=== PATIENT | male | born 1970 | race Caucasian/White ===

== ENCOUNTER 2024-04-06 00:36 | Emergency (ER) | payer BC, SELFPAY ==
[2024-04-06 00:36] VITALS: BP 148/103; PULSE 108; RESP 20; TEMP 37.7; O2SAT 96
--- NOTE | 2024-04-06 00:40 | EDS_ITS ---
HPI HPI - GI History of Present Illness Chief Complaint: Abd Pain Informant: patient Abdominal Pain/Flank Pain Onset: Today and Yesterday Context: Gradual Onset Timing: Continuous Quality: Aching Location: Diffuse Current Severity: Mild Maximum Severity: Moderate Worsened by: Nothing Relieved by: Nothing Nausea/Vomiting/Emesis GI Symptom: Positive for Nausea and Vomiting Onset: Today Severity: Mild Diarrhea/Melena/Hematochezia GI Symptom: Positive for - (Mild constipation. No bowel movement for 2 to 3 days.); Negative for Diarrhea, Melena or Hematochezia Severity: Mild Associated Symptoms Associated Symptoms: Negative for Dysuria, Frequency, Hematuria or Urgency Narrative Narrative: 53-year-old male no stated past medical history. No prior abdominal surgeries. Said he had URI symptoms last several days. He developed abdominal pain last evening. Had mild nausea and vomiting today. Pain started Tuesday evening. He denies any diarrhea. He has had mild constipation last several days. He had no prior abdominal surgeries. States his last bowel movement was 2 to 3 days ago. Denies any dysuria or hematuria. No prior history of bowel obstruction or any abdominal trauma. Prior similar symptoms: No Recent Illness/Hospitalization: No PFSH PFSH Medical History no medical history no medical history Home Medications ?Medication ?Instructions ?Recorded ?Last Taken ?Type tamsulosin 0.4 mg capsule (Flomax) 0.4 mg PO DAILY #10 caps 04/06/24 Unknown Rx Allergy/AdvReac Type Severity Reaction Status Date / Time No Known Allergies Allergy Verified 04/06/24 00:36 Surgical History no surgical history no surgical history Social History Smoking Status: Never smoker ROS ROS ED ROS Narrative Abdominal pain nausea and vomiting. Recent URI. Constitutional Constitutional ED: Denies chills or fever(s) ENT ENT ED: Denies ear pain Cardiovascular Cardiovascular: Denies chest pain Respiratory/Chest Respiratory/Chest: Denies cough or dyspnea Gastrointestinal Gastrointestinal: Reports abdominal pain, constipation, nausea and vomiting; De nies diarrhea or melena Genitourinary Genitourinary ED: Denies dysuria or hematuria Musculoskeletal Musculoskeletal: Denies arthralgias or back pain Integumentary Denies abscess or Abrasions Neurologic Neurologic: Denies headache(s) Psychiatric Psychiatric: Denies anxiety or depression Endocrine Endocrinology: Denies polydipsia or polyphagia Hematologic/Lymphatic Hematologic/Lymphatic: Denies easy bleeding or easy bruising Allergic/Immunologic Allergic/Immunologic ED: Denies mouth swelling, tongue swelling or urticaria EXAM Physical Exam Narrative Exam Narrative: 53-year-old male vital signs are stable he does have a low-grade temperature of 100. He does not look septic or toxic. He is in no distress. Sitting upright in bed. Currently no family with him. H EENT exam unremarkable. Moist mucous membranes. Neck nontender no JVD. Lungs clear to auscultation bilaterally. Heart regular rhythm rate about 105 no murmur. Chest wall ribs nontender. Abdomen soft nondistended normal bowel sounds without peritoneal signs. There is no localizing tenderness. He denies pain on palpation. I do not see any hernia or mass. There is no signs of trauma. No prior surgical scars. Right upper and lower quadrants are unremarkable. Back nontender. Moving all 4 extremities. Nontender no edema. Neurologically patient is awake and alert. Answering questions following commands. No focal motor deficits. Const Vital Signs: 04/06/24 00:36 Temperature 100 F H Temperature Source Oral Pulse Rate 108 H Respiratory Rate 20 H Blood Pressure 148/103 H Blood Pressure Mean 118 Pulse Ox 96 Oxygen Delivery Method Room Air Positive well nourished and well developed; Negative for obese, cachectic, contractures or unkempt General Appearance ED: well developed and NAD; Negative for unkempt, cachectic or contractures Nutritional Appearance: Negative for cachectic or obese HEENT Reports moist mucous membranes normocephalic and atraumatic Eyes PERRL and EOMs intact bilaterally Neck no lymphadenopathy, supple and no JVD Resp normal respiratory effort and clear to auscultation bilaterally Cardio regular rhythm, S1 normal heart sound, S2 normal heart sound and no murmurs; Negative for regular rate Rate: tachycardic Rhythm: Negative for abnormal rhythm GI non-tender, non-distended and no masses Inspection: Negative for abdominal distention Palpation: soft; Negative for tender, guarding, rigid, hernia, mass, pulsatile mass or rebound tenderness present Back/Spine no CVA tenderness General Back: Negative for CVA tenderness Cervical Spine: Negative for cervical spine tenderness Thoracic Spine / Upper Back: Negative for thoracic spinal tenderness Lumbar Spine / Lower Back: Negative for lumbar spinal tenderness Coccyx: Negative for other Extremity full ROM General Extremety ED: Negative for edema or tenderness General Extremity: Negative for edema Neuro CN's II-XII intact bilaterally and moves all extremities Sensorium / Orientation: alert, oriented to person, oriented to place and oriented to time Motor Exam: strength 5/5 throughout; Negative for general weakness or strength abnormal Psych mental status grossly normal and thought process normal Appearance: Negative for unkempt Attitude: No agitated Mood & Affect: Negative for depressed, anxious or tearful Skin no wounds General Skin Exam: Negative for jaundice Lesions: no lesions Rashes: no rashes MDM MDM MDM Narrative Medical decision making narrative: 53-year-old male complaining of diffuse abdominal pain since Tuesday evening. No trauma. No prior abdominal surgeries. Recently mild constipation. Today nausea and vomiting. No dysuria. CAT scan and labs are being obtained. Currently does not want a thing for pain or nausea. Differential would include constipation, bowel obstruction, appendicitis, UTI, diverticulitis versus other. There is really no localizing pain at this time. Patient requested some pain medication was given for morphine for Zofran. Initial labs are unremarkable awaiting urinalysis. Patient was unable to urinate by 1:35 AM. Was bladder scanned. 825. Murphy catheter being placed by nurses. Nurses were initially unable to place a 16 [place] Murphy or a coud? catheter. I attempted also. He Doubling back on itself. We then were able to obtain an 18 [place] coud? catheter and were able to get it in. He had a liter out of clear yellow urine. No gross blood or clots. Patient is feeling much better at 2:10 AM. History & Record Review Discussion w/independent historian: Patient Additional record(s) reviewed:: No prior records Lab Data Attestation: I reviewed the patient's lab results. Lab results narrative: CBC shows normal white count 8. H&H 15 and 45. Platelets 182. Electrolytes show sodium 134. Gap 8. BUN 19 creatinine of 1. Glucose 118. Liver enzymes unremarkable. Total bilirubin 1.9. Lipase normal at 17. Patient unable to urinate. Bladder scan 825 mL. Large bladder on CT. Labs: Laboratory Results - last 24 hr 04/06/24 00:50 WBC 8.5 RBC 4.94 Hgb 15.4 Hct 45.5 MCV 92.1 MCH 31.2 MCHC 33.8 RDW Std Deviation 43.4 RDW Coeff of Hardik 12.9 Plt Count 182 MPV 9.6 Immature Gran % (Auto) 1.800 H Neut % (Auto) 79.8 H Lymph % (Auto) 6.2 L [place] % (Auto) 9.2 Eos % (Auto) 2.1 Baso % (Auto) 0.9 Absolute Neuts (auto) 6.8 Absolute Lymphs (auto) 0.53 L Nucleated RBC % 0 Sodium 134 L Potassium 3.9 Chloride 99 Carbon Dioxide 28.0 Anion Gap 8 BUN 19 H Creatinine 1.08 Est GFR (MDRD) Af Amer 91 Est GFR (MDRD) Non-Af 75 BUN/Creatinine Ratio 17.6 Glucose 118 H Calcium 9.0 Total Bilirubin 1.90 H AST 24 ALT 30 Alkaline Phosphatase 75 Total Protein 7.2 Albumin 3.6 Globulin 3.6 Albumin/Globulin Ratio 1.0 Lipase 17 Discharge Plan Triage Chief Complaint: Abd Pain ED Provider: Kirby Lewis Dx/Rx/DC Orders Clinical Impression: Abdominal pain, Acute urinary retention, BPH (benign prostatic hyperplasia), Acute constipation Instructions: ED BPH (Enlarged Prostate), ED Constipation (Adult), ED Urinary Retention, Male Prescriptions: New tamsulosin [Flomax] 0.4 mg capsule 0.4 mg PO DAILY Qty: 10 0RF Rx Instructions: Take it before you go to bed at night. Primary Care Provider: JUANCHO ARCE Referrals: [facility] Doctor,Out of [Non-Staff] - Activity Restrictions/Additional Instructions: When you get back to [place] call schedule appointment to see a urologist as soon as possible. You had urinary retention mean you could not empty your bladder generally caused by an enlarged prostate. The Murphy catheter will stay in until you see the urologist. Empty it whenever it is three quarters full. The medication Flomax you can take before you go to bed at night this will help decrease the size your prostate and help you urinate. You can discuss continuing that after you see the urologist. For the constipation plenty of fluids, fruits, vegetable and fiber. You can also use magnesium citrate which you can get [id number]. Print Language: Irish Disposition Disposition: Home, Self Care
--- NOTE | 2024-04-06 00:44 | CT_ITS ---
EXAM: CT ABDOMEN AND PELVIS WITH INTRAVENOUS CONTRAST CLINICAL INDICATION: diffuse abd pain TECHNIQUE: Helically acquired images were obtained of the abdomen and pelvis with intravenous contrast. This CT exam was performed using one or more of the following dose reduction techniques: automated exposure control, adjustment of the mA and/or kV according to patient size, and/or use of iterative reconstruction technique. CONTRAST: 100 cc of Isovue-300 IV. RADIATION DOSE: CTDIvol = 7.83 mGy, DLP = 412.53 mGy-cm COMPARISON: No relevant prior studies available. FINDINGS: LOWER THORAX: Unremarkable. Lung bases are clear. No cardiomegaly. No significant pericardial effusion. ABDOMEN: LIVER: There is diffuse low-attenuation of the liver. GALLBLADDER AND BILE DUCTS: Unremarkable. No calcified gallstones. No gallbladder distention or wall edema. No intra- or extrahepatic biliary ductal dilation. PANCREAS: Unremarkable. No focal cystic or solid mass. SPLEEN: Unremarkable. Normal size without focal cystic or solid mass. ADRENALS: Unremarkable. No nodules. KIDNEYS AND URETERS: Unremarkable. Normal renal size and position. No hydronephrosis. STOMACH AND BOWEL: The rectum is distended up to 8 cm in diameter with fecal material. No focal inflammatory change. PELVIS: APPENDIX: No evidence of acute appendicitis. BLADDER: Unremarkable. REPRODUCTIVE: Unremarkable as visualized. No mass. ABDOMEN and PELVIS: INTRAPERITONEAL SPACE: Unremarkable. No ascites or other fluid collection. No free air. BONES/JOINTS: Unremarkable. No suspicious lytic or blastic abnormality. SOFT TISSUES: Unremarkable. No discrete abdominal or pelvic wall hernia. VASCULATURE: Unremarkable. Abdominal aorta is non-dilated. LYMPH NODES: Unremarkable. No enlarged lymph nodes. CT/Abdomen/Pelvis W IV Cont ONLY IMPRESSION: 1. Moderate rectal fecal impaction. 2. Fatty liver. Electronically Signed: Dhaval Perez MD at 2:17 EST ,
[2024-04-06 00:57] LABS: Absolute Lymphocyte Count 0.53 X10^3/uL (0.83-4.51); Absolute Neutrophil Count 6.8 X10^3/uL (2.0-7.7); Basophil# 0.08 X10^3/uL; Basophil% 0.9 % (0-1); Eosinophil# 0.18 X10^3/uL; Eosinophils% 2.1 % (0-5); Hematocrit 45.5 % (40-54); Hemoglobin 15.4 g/dL (13.0-16.5); Lymphocyte # 0.53 X10^3/ul (0.83-4.51); Lymphocyte % 6.2 % (19-41); Mean Corp Hgb Conc 33.8 g/dL (32-36); Mean Corpuscular Hgb 31.2 pg (27.0-32.0); Mean Corpuscular Volume 92.1 fL (80-94); Mean Platelet Vol. 9.6 fl (6.2-12.0); Monocyte# 0.78 X10^3/uL; Monocyte% 9.2 % (0-10); NRBC Flagged by Analyzer 0 % (0-5); Neutrophil # 6.78 X10^3/uL (2.7-7.7); Neutrophil % 79.8 % (47-70); POSITIVE DIFFERENTIAL YES; Platelet Count 182 K/mm3 (150-450); RBC Distribution Width CV 12.9 % (11.6-14.6); RBC Distribution Width SD 43.4 fl (35.1-43.9); Red Blood Count 4.94 M/mm3 (4.6-6.2); White Blood Count 8.5 K/mm3 (4.4-11.0)
[2024-04-06] MEDS: Ondansetron 4 MG/2 ML Vial IV (01:13)
[2024-04-06] MEDS: Morphine 4 MG/ML Syringe IV (01:13)
[2024-04-06 01:14] LABS: AST(SGOT) 24 U/L (15-37); Alanine Aminotransfer ALT/SGPT 30 U/L (16-61); Albumin, Serum 3.6 g/dL (3.2-5.0); Alkaline Phosphatase 75 U/L (45-117); Anion Gap 8 (5-15); BUN 19 mg/dL (7-18); BUN/Creat Ratio 17.6 RATIO (10-20); Chloride 99 mmol/L (98-107); Creatinine, Serum 1.08 mg/dL (0.70-1.30); EST Glomerular Filtration Rate 75 mL/min (>60); Est Glom Filt Rate - Afr Amer 91 mL/min (>60); Globulin 3.6 g/dL (2.2-4.2); Glucose 118 mg/dL (74-106); Lipase 17 U/L (13-75); Potassium 3.9 mmol/L (3.5-5.1); Protein, Total 7.2 g/dL (6.4-8.2); Sodium Level 134 mmol/L (136-145)
[2024-04-06 01:20] VITALS: BMI 25.0
--- NOTE | 2024-04-06 02:12 | ED.RN ---
Coude 18 fr catheter used
[2024-04-06 02:13] LABS: Bacteria 0 SEEN /hpf (None Seen); Mucous, Urine 0 SEEN /hpf (<or=2+); Red Blood Cells-Urine 0 SEEN /hpf (0-5); Squamous Epithelial Cells - UA 0 SEEN /hpf (0-5); White Blood Cells 0 SEEN /hpf (0-5)
[2024-04-06 02:15] LABS: Color, Urine Yellow (Yellow); Glucose, Dipstick Normal (Normal); Ketone-Dipstick 5 mg/dl (Negative); Leukocyte Esterase-Dipstick Negative /ul (Negative); Nitrite-Dipstick Negative (Negative); Occult Blood-Urine Negative /ul (Negative); Protein-Dipstick 15 mg/dl (Negative); Specific Gravity, Urine 1.015 (1.002-1.030); Urine Bilirubin Dipstick Negative (Negative); Urine Clarity Clear (Clear); Urine Urobilinogen Normal (Normal)
[2024-04-06 02:36] VITALS: BP 125/89; PULSE 94; RESP 16; O2SAT 91
[2024-04-06 03:32] VITALS: BP 123/90; PULSE 78; RESP 16; TEMP 36.7; O2SAT 97
[2024-04-06] MEDS: Electrolyte Solution/Peg's 4000 ML 1000 ML PO (03:49)
== END 2024-04-06 03:52 | disposition home or self-care (01) ==
PROVIDERS: Emergency Provider Emergency Medicine; Visit Provider Emergency Medicine
DX: N40.1 Benign prostatic hyperplasia with lower urinary tract symptoms (principal); R33.8 Other retention of urine; K59.00 Constipation, unspecified
CPT/HCPCS: 51702; 74177; 80053; 81001; 83690; 85025; 96374; 96375; 99284; Q9967; A4216; J2405